=== PATIENT | female | born 1955 | race Caucasian/White ===

== ENCOUNTER 2022-02-03 03:11 | Inpatient (IN) | payer BC, MEDICARE ==
[2022-02-03] MEDS ORDERED: Ketorolac Tromethamine 30 MG/ML VIAL ONE (03:41)
[2022-02-03] MEDS ORDERED: Promethazine HCl 25 MG/ML VIAL ONE (03:41)
[2022-02-03 04:27] LABS: #Basophils 0.1 10x3/uL (0.0-0.2); #Eosinphils 0.1 10x3/uL (0.0-0.5); #Monocytes 0.6 10x3/uL (0.0-1.1); #Neutrophils 8.6 10x3/uL (1.5-8.4); %Basophils 0.5 % (0.0-2.0); %Eosinophils 0.6 % (0.0-6.0); %Lymphocytes 15.4 % (18.0-47.0); %Monocytes 5.4 % (0.0-10.0); %Neutrophils 77.8 % (40.0-75.0); Hemoglobin 13.8 g/dL (12.0-15.5); Mean Corpuscular HGB CONC 35.8 g/dL (32.0-36.0); Mean Corpuscular Hemoglobin 32.8 pg (27.0-33.0); Mean Corpuscular Volume 91.7 fl (81.6-98.3); Mean Platelet Volume 8.5 fl (7.4-10.4); Platelet Count 403 10x3/uL (150-450); RBC Distribution Width 13.2 % (11.5-14.5); Red Blood Cell (RBC) Count 4.21 10x6/uL (3.90-5.03); White Blood Cell (WBC) Count 11.1 10x3/uL (3.5-10.5)
[2022-02-03 04:29] LABS: ALT (SGPT) 19 U/L (8-55); AST (SGOT) 20 U/L (5-34); Albumin 4.3 g/dL (3.4-4.8); Alkaline Phosphatase 80 U/L (40-110); Anion Gap 16 mmol/L (10-20); BUN (Urea Nitrogen) 14 mg/dL (9.8-20.1); Calc. Creatinine Clearance 0 mL/min (70-130); Calcium 10.4 mg/dL (7.8-10.44); Carbon Dioxide 26 mmol/L (23-31); Chloride 98 mmol/L (98-107); Estimated GFR 66; Globulin 3.1 g/dL (2.4-3.5); Glucose 136 mg/dL (80-115); Lipase 23 U/L (8-78); Potassium 3.9 mmol/L (3.5-5.1); Protein, Total 7.4 g/dL (5.8-8.1); Sodium 136 mmol/L (136-145)
[2022-02-03] MEDS ORDERED: Ondansetron PF 4 MG/2 ML Vial IVP PRN (06:45)
[2022-02-03] MEDS ORDERED: hydrALAZINE 20 MG/ML VIAL SLOW IVP PRN (06:48)
[2022-02-03] MEDS ORDERED: Morphine 2 MG/ML VIAL SLOW IVP PRN (06:48)
[2022-02-03 07:20] LABS: SARS-CoV-2 NAA Rapid Test Not Detected (NotDetected)
[2022-02-03] MEDS ORDERED: Famotidine/PF 20 mg/2ml Vial ONE (09:41)
[2022-02-03] MEDS ORDERED: Enoxaparin Sodium 40 MG/0.4 ML SYRINGE ONE (09:41)
[2022-02-03] MEDS: [UNRECOGNIZED DRUG - OTHER] IV SCH ×2 (09:50→23:51)
[2022-02-03] MEDS: Famotidine/PF 20 mg/2ml Vial SLOW IVP SCH (09:50)
[2022-02-03] MEDS: Enoxaparin Sodium 40 MG/0.4 ML SYRINGE SC SCH (09:50)
[2022-02-03] MEDS: ADMIXTURE FEE IV SCH ×2 (09:50→23:51)
[2022-02-03] MEDS: POTASSIUM CHLORIDE IV SCH ×2 (09:50→23:51)
[2022-02-03 13:12] LABS: #Basophils 0.1 10x3/uL (0.0-0.2); #Eosinphils 0.2 10x3/uL (0.0-0.5); #Monocytes 0.7 10x3/uL (0.0-1.1); #Neutrophils 5.3 10x3/uL (1.5-8.4); %Basophils 0.7 % (0.0-2.0); %Eosinophils 2.3 % (0.0-6.0); %Lymphocytes 33.6 % (18.0-47.0); %Monocytes 7.5 % (0.0-10.0); %Neutrophils 55.6 % (40.0-75.0); Hemoglobin 12.8 g/dL (12.0-15.5); Mean Corpuscular HGB CONC 34.4 g/dL (32.0-36.0); Mean Platelet Volume 8.4 fl (7.4-10.4); Platelet Count 356 10x3/uL (150-450); RBC Distribution Width 13.5 % (11.5-14.5); White Blood Cell (WBC) Count 9.6 10x3/uL (3.5-10.5)
[2022-02-03 13:27] LABS: ALT (SGPT) 16 U/L (8-55); AST (SGOT) 17 U/L (5-34); Albumin 3.7 g/dL (3.4-4.8); Alkaline Phosphatase 67 U/L (40-110); Anion Gap 12 mmol/L (10-20); BUN (Urea Nitrogen) 13 mg/dL (9.8-20.1); Bilirubin, Total 0.8 mg/dL (0.2-1.2); Calc. Creatinine Clearance 78 mL/min (70-130); Carbon Dioxide 23 mmol/L (23-31); Chloride 105 mmol/L (98-107); Estimated GFR 66; Globulin 2.5 g/dL (2.4-3.5); Glucose 92 mg/dL (80-115); Potassium 3.7 mmol/L (3.5-5.1); Protein, Total 6.2 g/dL (5.8-8.1); Sodium 136 mmol/L (136-145)
[2022-02-03] MEDS ORDERED: Iopamidol 300 61% 100 ML VIAL FS ONE (14:38)
[2022-02-03] MEDS: hydrOXYzine 25 MG TAB PO SCH (15:30)
[2022-02-03 20:50] LABS: Bilirubin Neg (Negative); Blood, Urine 150 (Negative); Clarity Clear (Clear); Glucose, Urine (Dipstick) Normal (Negative); Ketone, Urine Negative (Negative); Leukocyte 25 (Negative); Nitrite Negative (Negative); Protein, Urine (Dipstick) 15 mg/dl (Neg-Trace); Urobilinogen Normal mg/dL (Less than 2)
[2022-02-03 21:02] LABS: Bacteria/HPF Rare-Few HPF (None Seen); WBC/HPF 0-3 HPF (0-3)
[2022-02-03] MEDS ORDERED: tiZANidine HCl 4 MG TAB PO SCH (23:45)
[2022-02-03] MEDS: ALPRAZolam 0.5 MG TAB PO PRN (23:51)
[2022-02-04] MEDS: hydrOXYzine 25 MG TAB PO SCH (00:07)
[2022-02-04] MEDS: Famotidine/PF 20 mg/2ml Vial SLOW IVP SCH ×3 (00:16→21:53)
[2022-02-04 05:47] LABS: #Basophils 0.1 10x3/uL (0.0-0.2); #Eosinphils 0.3 10x3/uL (0.0-0.5); #Monocytes 0.6 10x3/uL (0.0-1.1); #Neutrophils 3.4 10x3/uL (1.5-8.4); %Basophils 0.7 % (0.0-2.0); %Eosinophils 3.2 % (0.0-6.0); %Monocytes 7.3 % (0.0-10.0); %Neutrophils 41.6 % (40.0-75.0); Hemoglobin 12.3 g/dL (12.0-15.5); Mean Corpuscular HGB CONC 33.7 g/dL (32.0-36.0); Mean Corpuscular Volume 95.1 fl (81.6-98.3); Mean Platelet Volume 8.6 fl (7.4-10.4); Platelet Count 345 10x3/uL (150-450); RBC Distribution Width 13.8 % (11.5-14.5); Red Blood Cell (RBC) Count 3.84 10x6/uL (3.90-5.03); White Blood Cell (WBC) Count 8.1 10x3/uL (3.5-10.5)
[2022-02-04 05:52] LABS: Anion Gap 13 mmol/L (10-20); BUN (Urea Nitrogen) 8 mg/dL (9.8-20.1); Calc. Creatinine Clearance 89 mL/min (70-130); Calcium 9.1 mg/dL (7.8-10.44); Carbon Dioxide 22 mmol/L (23-31); Chloride 109 mmol/L (98-107); Estimated GFR 78; Glucose 101 mg/dL (80-115); Potassium 4.4 mmol/L (3.5-5.1); Sodium 140 mmol/L (136-145)
[2022-02-04] MEDS: Enoxaparin Sodium 40 MG/0.4 ML SYRINGE SC SCH (09:36)
[2022-02-04] MEDS: Senokot S 8.6-50 MG TAB PO SCH ×2 (09:38→21:53)
[2022-02-04] MEDS: Polyethylene Glycol 3350 17 GM Packet PO SCH (09:38)
[2022-02-04] MEDS: tiZANidine HCl 4 MG TAB PO SCH ×4 (09:39→21:53)
[2022-02-04] MEDS: POTASSIUM CHLORIDE IV SCH ×2 (17:48→19:52)
[2022-02-04] MEDS: [UNRECOGNIZED DRUG - OTHER] IV SCH ×2 (17:48→19:52)
[2022-02-04] MEDS: ADMIXTURE FEE IV SCH ×2 (17:48→19:52)
[2022-02-05] MEDS: ALPRAZolam 0.5 MG TAB PO PRN ×2 (05:05→12:31)
[2022-02-05 07:35] LABS: Anion Gap 15 mmol/L (10-20); BUN (Urea Nitrogen) 5 mg/dL (9.8-20.1); Calc. Creatinine Clearance 87 mL/min (70-130); Calcium 9.6 mg/dL (7.8-10.44); Carbon Dioxide 19 mmol/L (23-31); Chloride 110 mmol/L (98-107); Estimated GFR 76; Glucose 94 mg/dL (80-115); Sodium 139 mmol/L (136-145)
[2022-02-05 08:12] LABS: Potassium 4.8 mmol/L (3.5-5.1)
[2022-02-05] MEDS ORDERED: Hydrochlorothiazide 25 MG TAB PO SCH (09:00)
[2022-02-05] MEDS ORDERED: Lisinopril 20 MG TAB PO SCH (09:00)
[2022-02-05] MEDS: tiZANidine HCl 4 MG TAB PO SCH ×3 (12:31→12:47)
[2022-02-05] MEDS: Senokot S 8.6-50 MG TAB PO SCH (12:33)
[2022-02-05] MEDS: Famotidine/PF 20 mg/2ml Vial SLOW IVP SCH (12:34)
[2022-02-05] MEDS: [UNRECOGNIZED DRUG - OTHER] IV SCH ×2 (12:34→16:22)
[2022-02-05] MEDS: ADMIXTURE FEE IV SCH ×2 (12:34→16:22)
[2022-02-05] MEDS: POTASSIUM CHLORIDE IV SCH ×2 (12:34→16:22)
[2022-02-05] MEDS: Enoxaparin Sodium 40 MG/0.4 ML SYRINGE SC SCH (12:35)
[2022-02-05] MEDS: Polyethylene Glycol 3350 17 GM Packet PO SCH (12:35)
[2022-02-05 17:36] VITALS: BP 154/83; TEMP 98.3
== END 2022-02-05 17:30 | disposition home or self-care (01) | DRG 390 ==
LOC: CSHERS 03:11 → SUATTDRO 03:11 → CSHERHOLD 07:38 → INTOOBSV 07:38 → CSHTELE 15:34 → OBSVTOIN 02-05 07:37
PROVIDERS: ADMIT Internal Medicine; ATTEND Internal Medicine
PROC: 0D9670Z Drainage of Stomach with Drainage Device, Via Natural or Artificial Opening (ICD-10-PCS; principal; 2022-02-04)
DX: K56.690 Other partial intestinal obstruction (principal); I10 Essential (primary) hypertension; J44.9 Chronic obstructive pulmonary disease, unspecified; M79.7 Fibromyalgia; Z20.822 Contact with and (suspected) exposure to COVID-19; F43.10 Post-traumatic stress disorder, unspecified; Z79.899 Other long term (current) drug therapy; Z98.890 Other specified postprocedural states; Z88.8 Allergy status to other drugs, medicaments and biological substances; Z98.51 Tubal ligation status
CPT/HCPCS: 36415; 71045; 74018; 74177; 80048; 80053; 81001; 83690; 84443; 85025; 93005; 96361; 96365; 96372; 96375; 96376; G0378; J1650; J1885; J2270; J2405; J2550; J3480; Q9967; S0028; U0002